=== PATIENT | female | born 1965 | race African-American/Black ===

== ENCOUNTER 2018-11-10 08:48 | Emergency (ER) | payer OTHER ==
[~2018-11-10] VITALS: Ht 177.8 cm; Wt 80.0 kg
[~2018-11-10 08:48] MED LIST: INDOCIN25 MG PO
[2018-11-10 09:00] VITALS: BP 131/74
[2018-11-10] MEDS ORDERED: LIPITOR40 M1 PO (09:10)
[2018-11-10] MEDS ORDERED: CYCLOBENZAPRINE5 MG PO (09:21)
[2018-11-10] MEDS ORDERED: MOTRIN400 MG PO (09:22)
== END 2018-11-10 09:30 | disposition home or self-care (01) | DRG 563 ==
LOC: ED 08:48
DX: S39.012A Strain of muscle, fascia and tendon of lower back, initial encounter (principal); E78.5 Hyperlipidemia, unspecified; X50.0XXA Overexertion from strenuous movement or load, initial encounter; Y93.A9 Activity, other involving cardiorespiratory exercise